=== PATIENT | female | born 1985 | race African-American/Black ===

== ENCOUNTER 2017-03-30 09:45 | Emergency (ER) | payer OTHER ==
[~2017-03-30] VITALS: Ht 162.6 cm; Wt 122.5 kg
[2017-03-30 10:30] VITALS: BP 158/84
[2017-03-30] MEDS ORDERED: cloNIDine HCL 0.1 MG TABLET PO ONE (10:30)
[2017-03-30] MEDS ORDERED: ACETAMINOPHEN 650 MG SUPP.RECT. PR ONE (10:30)
[2017-03-30] MEDS ORDERED: ACETAMINOPHEN 325 MG TABLET PO ONE ×2 (10:52→11:15)
--- NOTE | 2017-03-30 16:18 | ED.ADGEN ---
Past History Past Medical History: Hypertension Past Surgical History: Alcohol Use: Rarely Drug Use: None Adult General Chief Complaint Chief Complaint Suture removal [facility] HPI Patient is a 29 oh Afro-[place] female presenting for left forearm suture removal. Suture was placed one week ago old without complication. Patient also reports chronic headaches and current headache described as retro-orbital throbbing. She has had the headache for the past 3 days. She denies nausea vomiting and photophobia. Today's headache similar pattering location and severity as chronic headaches. Patient took Excedrin Migraine yesterday with limited relief. Denies precipitating factors. Patient has previously been evaluated for chronic headaches by her PCP and was prescribed Topamax. Patient decided against take the prescription due to concern for possible fax. Of note, patient is hypertensive triage. Blood pressure 160/100. Patient states she is previously been diagnosed with hypertension. Review of Systems Review of Systems ROS as per HPI. Current Medications Current Medications Current Medications Medications (Trade) Dose Ordered Sig/Angelina Start Time Stop Time Status Last Admin Dose Admin Acetaminophen (Tylenol) 325 mg 1X ONCE 03/30/17 11:15 03/30/17 11:15 DC Clonidine HCl (Catapres) 0.1 mg 1X ONCE 03/30/17 10:30 03/30/17 10:31 DC Allergies Allergies Allergies Coded Allergies Type Severity Reaction Last Updated Verified No Known Drug Allergies 10/24/14 No Physical Exam Physical Exam Constitutional: Well developed, well nourished, no acute distress, non-toxic appearance. HENT: Normocephalic, atraumatic, bilateral external ears normal, oropharynx moist, no oral exudates, nose normal. Eyes: PERRLA, EOMI, conjunctiva normal. Neck: Normal range of motion, no tenderness. Cardiovascular:Heart rate regular rhythm, no murmur. Lungs & Thorax: Bilateral breath sounds clear to auscultation. Abdomen: Bowel sounds normal, soft, no tenderness. Skin: Warm, dry. healing left forearm incision. Back: No tenderness. Extremities: No tenderness. Neurologic: Alert and oriented X 3, normal motor function, normal sensory function, no focal deficits noted. Psychologic: Affect normal, judgement normal, mood normal. Current Patient Data Vital Signs Vital Signs Date Time Temp Pulse Resp B/P (MAP) Pulse Ox O2 Delivery O2 Flow Rate FiO2 7/10/17 10:30 84 158/84 7/10/17 10:27 98.9 18 99 Room Air EKG EKG [] Radiology/Procedures Radiology/Procedures [] Course & Med Decision Making Course & Med Decision Making Pertinent Labs and Imaging studies reviewed. (See chart for details) [Tylenol given for pain, BP improved wo tx. ] Final Impression Final Impression [1. Encounter for suture removal 2. Headache] Problems: Dragon Disclaimer Dragon Disclaimer This electronic medical record was generated, in whole or in part, using a voice recognition dictation system. UZAIR IRAHETA DO Mar 30, 2017 16:18
== END 2017-03-30 11:06 | disposition home or self-care (01) ==
LOC: ER 09:45
DX: S51.812D Laceration without foreign body of left forearm, subsequent encounter (principal); G89.29 Other chronic pain; R51 Headache; I10 Essential (primary) hypertension; X58.XXXD Exposure to other specified factors, subsequent encounter; Y92.89 Other specified places as the place of occurrence of the external cause; Y99.8 Other external cause status
CPT/HCPCS: 99282